=== PATIENT | male | born 1985 | race Caucasian/White ===

== ENCOUNTER → 2018-11-23 09:03 | Outpatient (CLI) | payer OTHER, SELFPAY ==
--- NOTE | 2018-11-23 | DI.US.S_ITS ---
PROCEDURE: US SCROTUM INDICATIONS: LEFT TESTICULAR PAIN TECHNIQUE: Real-time scanning was performed of the scrotum and testicles, with image documentation. Color and pulse Doppler interrogation was performed of both testicles. COMPARISON: None. FINDINGS: Right: Testicle is normal in size at 3.7 x 3.0 x 1.9 cm, and homogenous in echotexture. Left testis is mobile and after physical activity is retracted into the inguinal canal. Epididymis is normal in overall size and morphology. Right epididymal cyst measuring 1.7 cm No hydrocele or varicoceles. Overlying scrotal skin is normal in thickness. Left: Testicle is normal in size at 4.6 x 2.9 x 2.0 cm, and homogeneous in echotexture. Epididymis is normal in overall size and morphology. No hydrocele or varicoceles. Overlying scrotal skin is normal in thickness. Doppler: Color and pulse Doppler demonstrate normal and symmetric arterial flow in both testicles. IMPRESSION: 1. Mobile left testicle which is retracted into the left inguinal canal after physical activity. Testicles otherwise appear normal. 2. Right epididymal cyst. Dictated by: Kraig ZARAGOZA Interpreted: Felipe Perez MD on 11/23/2018 at 11:31 Approved by: Felipe Perez M.D. on 11/23/2018 at 11:45
== END ==
PROVIDERS: PCP Family Medicine; Visit Provider Specialist
DX: N50.812 Left testicular pain (principal); N50.3 Cyst of epididymis
CPT/HCPCS: 76870

== ENCOUNTER → 2018-11-25 09:00 | Outpatient (CLI) | payer OTHER, SELFPAY ==
--- NOTE | 2018-11-25 09:04 | DI.CT.S_ITS ---
PROCEDURE: CT ABDOMEN PELVIS WO/W CON INDICATIONS: HEMATURIA TECHNIQUE: Optional 5 mm thick noncontrast images acquired from the diaphragm to the symphysis pubis. After the administration of intravenous contrast, 5 mm thick images acquired from the diaphragm to the symphysis pubis after a 10-minute delay. 2 mm thick coronal and sagittal reformats were then performed of the kidneys and ureters. For radiation dose reduction, the following was used: automated exposure control, adjustment of mA and/or kV according to patient size. COMPARISON: [facility], , SCROTUM, 11/23/2018, 9:28. FINDINGS: Image quality: Excellent. Lung bases: Lung bases are clear. Heart size is normal. Urinary system: Both kidneys are normal in size, without hydronephrosis or nephrolithiasis on pre-contrast images. No perinephric fat stranding. There is normal bilateral renal enhancement. Renal calyces appear normal in morphology when filled with contrast. Opacified portions of both ureters demonstrate normal caliber. Bladder wall thickness is normal. No calcified bladder stones. Other solid organs: Liver is normal in size and enhancement. Gallbladder appears normal. Biliary system is non dilated. Pancreas enhances normally. Spleen is normal in size and enhancement. No adrenal nodules. Peritoneum and bowel: Bowel loops demonstrate normal wall thickness and caliber. No free fluid or air. Nodes and vessels: No retroperitoneal or mesenteric adenopathy by size criteria. Aorta and inferior vena cava are normal in size. Abdominal wall: No ventral hernias. Pelvis: No pathologic free pelvic fluid. No inguinal hernias or adenopathy. Bones: No suspicious bony lesions. No vertebral body compression fractures. IMPRESSION: A mass lesion is not seen within the urothelial lining of the urinary tract. No renal cortical mass lesion is found. A urinary tract stone is not identified as cause of the reported hematuria. Prostate gland visualized appears normal in contour, without prostatic calcifications. Overall, the source of hematuria reportedly is not found. Dictated by: Benjamin Overton M.D. on 11/25/2018 at 16:40 Approved by: Benjamin Overton M.D. on 11/25/2018 at 16:43
== END ==
PROVIDERS: PCP Family Medicine; Visit Provider Specialist
DX: R31.9 Hematuria, unspecified (principal)
CPT/HCPCS: 74178; Q9967

== ENCOUNTER → 2019-01-20 15:41 | Outpatient (CLI) | payer OTHER, SELFPAY ==
[2019-01-20 16:01] LABS: Bacteria Urine None Seen; WBC Urine None Seen (0-5/HPF)
[2019-01-20 16:27] LABS: Add Manual Diff / Slide Review NO; Basophils Absolute Auto 100 /uL (0-100); Basophils Percent Auto 0.8 % (0-2); Eosinophils Absolute Auto 200 /uL (0-450); Hematocrit 42.6 % (41-53); Hemoglobin 14.9 g/dL (13.5-17.5); Lymphocytes Absolute Auto 2000 /uL (1100-4500); Lymphocytes Percent Auto 27.2 % (25-40); Mean Corpuscular Hemoglobin 29.3 PG (26-34); Mean Corpuscular Volume 83.8 fL (80-100); Monocytes Absolute Auto 600 /uL (0-900); Monocytes Percent Auto 7.5 % (3-14); Neutrophils Absolute Auto 4600 /uL (1500-7000); Neutrophils Percent Auto 61.5 % (50-75); Platelet Count 282 X10^3/uL (150-400); Red Blood Cell Count 5.08 X10^6/uL (4.5-5.9); Red Cell Distribution Width 12.7 % (11.6-14.8); White Blood Cell Count 7.5 X10^3/uL (4.5-11.0)
[2019-01-20 16:32] LABS: Appearance Urine UA CLEAR; Bilirubin Urine UA NEGATIVE (NEGATIVE); Color Urine UA YELLOW; Glucose Urine UA NEGATIVE (Negative); Ketones Urine UA NEGATIVE (NEGATIVE); Leukocyte Esterase Urine UA NEGATIVE (NEGATIVE); Nitrite Urine UA NEGATIVE (Negative); Occult Blood Urine UA 2+ (Negative); Protein Urine UA NEGATIVE (Negative); Urobilinogen Urine UA 0.2 E.U./dL (0.2)
[2019-01-20 16:52] LABS: RBC Urine 0-1/HPF (0-5/HPF); Squamous Epithelial Cell Urine None Seen (0-5/HPF)
[2019-01-20 16:53] LABS: Culture Indicated Urine Cult Not Indicated
[2019-01-20 17:19] LABS: BUN Creatinine Ratio 13.6 (6-22); Blood Urea Nitrogen 15 mg/dL (9-20); Calcium 9.9 mg/dL (8.4-10.2); Carbon Dioxide 32 mmol/L (22-32); Chloride 100 mmol/L (98-107); Estimated Glomerular Filt Rate > 60.0 mL/min (>60); Glucose 86 mg/dL (70-100); HEMOLYSIS < 15 (0-50); Potassium 4.4 mmol/L (3.4-5.1); Sodium 141 mmol/L (137-145)
[2019-01-20 17:21] LABS: Creatinine Urine Random 35.8 mg/dL; Protein (Total) Urine Random 16 mg/dL (0-12); Protein Creatinine Ratio Urine 0.44 GRAM/24H
[2019-01-20 17:51] LABS: Hepatitis B Surface Antigen NEGATIVE s/c (NEGATIVE)
[2019-01-20 18:11] LABS: Hep C Virus Ab w/Reflex Quant NEGATIVE s/c (NEGATIVE)
[2019-01-22 17:39] LABS: ANA Screen, IFA Negative (Negative)
[2019-01-23 15:55] LABS: DNA (DS) Antibody < 1 IU/mL (< 5)
[2019-01-23 17:58] LABS: ANCA Screen Negative (Negative)
[2019-01-24 15:15] LABS: Complement C3 140 mg/dL (82-185)
[2019-01-25 15:22] LABS: Hepatitis B Core Antibody Nonreactive (Nonreactive); Hepatitis B Surf Ab Qualitativ Reactive (Nonreactive)
== END ==
PROVIDERS: PCP Family Medicine; Visit Provider Student in an Organized Health Care Education/Training Program
DX: L93.2 Other local lupus erythematosus (principal); M31.30 Wegener's granulomatosis without renal involvement; M32.10 Systemic lupus erythematosus, organ or system involvement unspecified; N00.9 Acute nephritic syndrome with unspecified morphologic changes; N05.9 Unspecified nephritic syndrome with unspecified morphologic changes; D89.89 Other specified disorders involving the immune mechanism, not elsewhere classified; D70.9 Neutropenia, unspecified; N30.00 Acute cystitis without hematuria; R80.9 Proteinuria, unspecified; B19.10 Unspecified viral hepatitis B without hepatic coma; B17.10 Acute hepatitis C without hepatic coma
CPT/HCPCS: 36415; 80048; 81001; 82570; 83520; 84156; 85025; 86021; 86038; 86160; 86225; 86704; 86706; 86803; 87340

== ENCOUNTER 2024-02-07 07:37 | Day surgery (SDC) | payer OTHER, SELFPAY ==
--- NOTE | 2024-02-07 | PATH_ITS ---
[facility] Accession Number: [id number] No. of containers..03 Tissue . 01 Material submitted: . PART A: duodenum - DUODENUM PART B: gastrointestinal site - ANTRUM PART C: colon - TRANSVERSE COLON POLYP . 01 Diagnosis: Part A: DUODENUM: Duodenal mucosa with focal mild active inflammation. No evidence of celiac disease. No infectious organisms identified. See comment. . Specimen Comments: The features raise a differential including peptic duodenitis or NSAID-induced injury among other possibilities. . Part B: ANTRUM: Gastric mucosa with minimal chronic inflammation. No Helicobacter organisms identified. No intestinal metaplasia, dysplasia, or malignancy identified. . Part C: TRANSVERSE COLON POLYP: Tubular adenoma. [facility] 02/11/20241455 Local . 01 Electronically signed: . Yasmani Jaffe MD, Pathologist NPI- [id number] . 01 Gross description: . A. Received in formalin with two patient identifiers and duodenum, are three merritt soft tissue fragments, 0.3 to 0.5 cm in greatest dimension. Submitted in A1. . B. Received in formalin with two patient identifiers and antrum, are two merritt soft tissue fragments, 0.2 to 0.3 cm in greatest dimension. Submitted in B1. . C. Received in formalin with two patient identifiers and transverse colon polyp, is a single merritt soft tissue fragment, 0.4 cm in greatest dimension. Submitted in C1. ([id number]) /MRV 02/11/20241455 Local . 01 Microscopic: . Part B: ANTRUM: An immunohistochemical stain was performed to evaluate for Helicobacter organisms and is negative. The control stains appropriately. * This test was developed and its performance characteristics determined by [employer] It has not been cleared or approved by the U.S. Food and Drug Administration. The FDA has determined that such clearance or approval is not necessary. This test is used for clinical purposes. It should not be regarded as investigational or for research. . 01 Pathologist provided ICD-10: D12.3, K29.30, K29.80 . 01 CPT . 413414, 553837, [id number], [id number] Specimen Comment: A courtesy copy of this report has been sent to [phone] Performed at: [address] [id number] MD Yasmani Jaffe MD Phone: [phone]
[2024-02-07 08:23] VITALS: BP 133/83; PULSE 80; RESP 16; TEMP 36.2; O2SAT 98
[2024-02-07] MEDS: LACTATED RINGERS 1,000 ML 42 ML IV (08:34)
--- NOTE | 2024-02-07 09:07 | P.HP_ITS ---
History of Present Illness History of Present Illness Date Patient Seen: 02/07/24 Time Patient Seen: 09:07 Chief complaint: EGD & Colonoscopy Narrative: 38-year-old male with a history of colon polyps, family history of colon cancer, and gluten intolerance with positive celiac antibody. I reviewed the recent note by Dr. Toure. No changes. He does have a ?bump? that he has felt in his right neck. He is being evaluated soon by ENT for this. [facility] Social History Smoking Status: Never smoker Meds Home Medications and Allergies Home Medications Medication Instructions Recorded Confirmed Type amitriptyline 10 mg tablet 10 mg PO DAILY 02/07/24 02/07/24 History nadolol 20 mg tablet 20 mg PO DAILY 02/07/24 02/07/24 History Allergies Allergy/AdvReac Type Severity Reaction Status Date / Time No Known Drug Allergies Allergy Verified 02/07/24 08:17 Review of Systems Review of Systems ROS: Yes All systems reviewed with the patient and are negative except as otherwise documented Exam Vital Signs (past 8 hours): - 02/07/24 08:23 Temperature 97.1 F L Pulse Rate 80 Respiratory Rate 16 Blood Pressure 133/83 Pulse Oximetry 98 Oxygen Delivery Method Room Air Oxygen Delivery Method Room Air Const General: cooperative HENMT Head: normal to inspection Eyes General: appearance normal, both eyes and all related structures Neck Neck: normal visual inspection Chest Chest: normal inspection of the chest Resp Effort & Inspection: normal respiratory effort Cardio Rate: regular rate GI Inspection: normal to inspection Skin General: no rashes or lesions noted Neuro General: patient alert and patient awake Extrem General: normal to inspection and no pedal edema Psych Appearance: grossly normal Assessment & Plan Assessment & Plan narrative: 38-year-old male with positive celiac serology, family history of colon cancer, personal history of colon polyps. EGD and colonoscopy are pursued today.
--- NOTE | 2024-02-07 09:09 | PM.PREOP ---
Pre-operative Note Interval Note History & Physical reviewed/Exam performed by Physician: Yes Changes to H&P: No ASA Class (for procedural sedation): II
--- NOTE | 2024-02-07 10:13 | PM.OP.EC ---
Operative Date/Time/Diagnoses Date of procedure: 02/07/24 Time of procedure: 10:13 Pre-op diagnosis: Positive celiac serology, family history of colon cancer, personal history of colon polyps Post-op diagnosis: same Procedure & Clinicians Study performed: EGD with biopsies and colonoscopy with cold snare polypectomy Same procedure as scheduled: Yes Indications: Positive celiac serology, family history of colon cancer, personal history of colon polyps Surgeon: Shaquille Mcdonald Procedure Notes SCOAP/Timeout: Done Procedure in detail: After the risks and benefits were explained, written and verbal informed consent was obtained. The patient was brought into the procedure room and placed into the left lateral decubitus position. Please see anesthesia notes for sedation details. The scope was introduced into the mouth through the bite block and advanced under direct visualization to the 2nd portion of the duodenum. The scope was slowly withdrawn carefully examining the mucosa for any defects or lesions. Retroflexed views were accomplished in the stomach. The stomach was decompressed, the scope was then removed from the patient who tolerated the procedure well. The patient was then turned around. A digital rectal examination was accomplished. The scope was introduced into the rectum and advanced to the cecum as identified by the appendiceal orifice and ileocecal valve. The terminal ileum was interrogated. The scope was then slowly withdrawn to carefully examine the mucosa for any defects or lesions. Multiple direct views were made through the dentate line for exclusion of pathology. The colon was decompressed. The scope was removed from the patient who tolerated the procedure well. Adult colonoscope Bowel prep adequate Scope withdrawal time: 11 minutes Sedation minutes: 27 Complications: none Impression: 1. Duodenal: This appeared visually unremarkable apart from some patchy erythema in the bulb. D2 biopsies were taken for exclusion of celiac disease. 2. Stomach: The patient had no evidence of outlet obstruction. No mass lesions no ulcers. Retroflexed views of the LES were fairly unremarkable. There was some mild erythema in the antrum and biopsies were acquired for exclusion of H pylori. Otherwise no significant gastric pathology appreciated throughout. 3. Esophagus: The squamocolumnar junction correlated with the top of the gastric folds. GEJ was at 39 cm from the incisors. The esophagus was normal throughout. 4. Colon: There was a 6-7 mm sessile polyp in the transverse removed with cold snare. No additional mucosal pathology was appreciated throughout. 5. Terminal ileum: This was normal in appearance. Endoscopic diagnosis 1. Minimal gastropathy 2. Otherwise visually normal-appearing EGD 3. Small colon polyp 4. Otherwise visually unremarkable colonoscopy/terminal ileoscopy. Post-procedure Plan for aftercare: 1. Await histology. 2. Repeat colonoscopy 5 years. Disposition: PACU
[2024-02-07 10:14] VITALS: BP 116/69; PULSE 93; RESP 12; TEMP 36.6; O2SAT 97
[2024-02-07 10:18] VITALS: BP 111/73; PULSE 76; RESP 23; O2SAT 98
[2024-02-07 10:26] VITALS: BP 115/80; PULSE 71; RESP 22; TEMP 36.6; O2SAT 100
== END 2024-02-07 10:36 | disposition home or self-care (01) ==
PROVIDERS: Referring Provider Internal Medicine Gastroenterology; Visit Provider Internal Medicine Gastroenterology
PROC: 0DJ08ZZ Inspection of Upper Intestinal Tract, Via Natural or Artificial Opening Endoscopic (ICD-10-PCS; CPT 45385; principal; 2024-02-07 09:00)
PROC: 0DJD8ZZ Inspection of Lower Intestinal Tract, Via Natural or Artificial Opening Endoscopic (ICD-10-PCS; CPT 45378; 2024-02-07 09:00)
DX: Z12.11 Encounter for screening for malignant neoplasm of colon (principal); Z80.0 Family history of malignant neoplasm of digestive organs; Z86.010 Personal history of colon polyps; K31.9 Disease of stomach and duodenum, unspecified; K29.80 Duodenitis without bleeding; K29.50 Unspecified chronic gastritis without bleeding; D12.3 Benign neoplasm of transverse colon
CPT/HCPCS: 45385; 43239